=== PATIENT | female | born 1985 | race Caucasian/White ===

== ENCOUNTER 2016-10-22 13:26 | Emergency (ER) | payer MEDICAID ==
[~2016-10-22] VITALS: Ht 170.2 cm; Wt 94.8 kg
--- NOTE | 2016-10-22 13:42 | PD ---
HPI Chief Complaint: ENT Complaint Time Seen by Provider: 13:41 Travel History International Travel<30 days: No Contact w/Intl Traveler<30days: No History of Present Illness HPI 31-year-old female arrives with 1 day of right trapezius muscle pain. It's constant. She denies trauma. Pain is worse with range of motion of the neck. She's had no fever. No numbness tingling weakness in either extremity. PFSH Past Medical History Cancer: No Cardiovascular Problems: No Diabetes: Yes (RESOLVED WITH WEIGHT LOSS) Endocrine: Yes Gastrointestinal Disorders: Yes (GERD) Genitourinary: No Hepatitis: No Hiatal Hernia: Yes Immune Disorder: No Musculoskeletal: No Neurologic: Yes (MIGRANES) Psychiatric: Yes (CLAUSTRAPHOBIA) Reproductive: No Respiratory: Yes (CHR. BRONCHITIS) Thyroid Disease: Yes Past Surgical History Abdominal Surgery: Yes (APPY, LAP JOSE, GASTRIC SLEEVE) AICD: No Gynecologic Surgery: Yes (LEEP, ESSURE PROCEDURE, D & C, TUBAL LIG.) Hysterectomy: Yes Joint Replacement: No Pacemaker: No Other Surgery: Yes Social History Alcohol Use: Yes Tobacco Use: Yes Substance Use: No Allergies-Medications (Allergen,Severity, Reaction): Coded Allergies: Darvocet-N 100 (Verified Allergy, Severe, Anaphylaxis, 10/22/16) Darvon (Verified Allergy, Severe, Anaphylaxis, 10/22/16) Demerol (Verified Allergy, Severe, DYSPNEA, THROAT CLOSURE, 10/22/16) Lortab (Verified Allergy, Severe, HIVES, 10/22/16) Percocet (Verified Allergy, Severe, HICVES, 10/22/16) Soma (Verified Allergy, Severe, HIVES, 10/22/16) Reported Meds & Prescriptions Reported Meds & Active Scripts Active Tizanidine (Tizanidine HCl) 6 Mg Cap 6 Mg PO TID Review of Systems General / Constitutional: No: Fever Neurologic: No: Weakness, Focal Abnormalities Physical Exam Narrative GENERAL: 31-year-old female pleasant well-nourished well-developed GASTROINTESTINAL: Abdomen soft, non-tender, nondistended. Hepatic and splenic margins not palpable. MUSCULOSKELETAL: No obvious deformities. No clubbing. No cyanosis. No edema. There is tenderness to palpation in the right trapezius with some muscle spasming in that area. NEUROLOGICAL: Awake and alert. No obvious cranial nerve deficits. Motor grossly within normal limits. Normal speech. PSYCHIATRIC: Appropriate mood and affect; insight and judgment normal. Data Data Last Documented VS Vital Signs Date Time Temp Pulse Resp B/P Pulse Ox O2 Delivery O2 Flow Rate FiO2 10/22/16 13:53 98.4 80 18 145/82 96 Room Air Vital signs reviewed Orders Orphenadrine Inj (Norflex Inj) (10/22/16 14:30) MDM Medical Decision Making Medical Screen Exam Complete: Yes Emergency Medical Condition: Yes Differential Diagnosis Radiculopathy, pneumothorax, muscle spasm Narrative Course Patient has muscle spasm of the right trapezius. We'll send her home with tizanidine. Diagnosis Primary Impression: Muscle spasm Additional Instructions: PLEASE DO NOT DRIVE OR WORK AFTER TAKING TIZANIDINE. PLEASE PLAN ON GOING TO SLEEP AFTER YOU TAKE IT. DRINK PLENTY OF WATER, APPROXIMATELY 3 LITERS PER DAY. TRY TO TURN THE FANS OFF AT NIGHT. A WARM COMPRESS UPON THE PAINFUL AREA MAY BE OF BENEFIT. Med/Other Pt SpecificInfo: Prescription(s) given Scripts Tizanidine 6 Mg Cap6 Mg PO TID #20 CAP Ref 0 Prov:Bowen David MD 10/22/16 Disposition: 01 DISCHARGE HOME Condition: Stable Bowen David MD Oct 22, 2016 13:42
[2016-10-22 13:53] VITALS: BP 145/82; PULSE 80; RESP 18; TEMP 98.4; O2SAT 96
[2016-10-22] MEDS ORDERED: TIZA6CAP3 PO (14:14)
[2016-10-22] MEDS ORDERED: ORPHENADRINE INJ 60 MG/2 ML AMP IM ONE (14:30)
== END 2016-10-22 14:46 | disposition home or self-care (01) ==
LOC: PHEFT 13:26
DX: M62.838 Other muscle spasm (principal)
CPT/HCPCS: 96372; 99284; J2360